=== PATIENT | female | born 1945 | race Caucasian/White ===

== ENCOUNTER 2020-04-07 05:51 | Inpatient (IN) | payer MEDICARE ==
[~2020-04-07] VITALS: Ht 142.2 cm; Wt 40.4 kg
--- NOTE | ~2020-04-07 | OP ---
[facility] [address] [place] [address] OPERATIVE REPORT Name: ANA CHISHOLM Room: [address] IN .R.#: [id number] Admission: 04/07/20 Attend Phys: Di Rizvi MD Discharge: Date of : 41 Report #: [id number] THIS REPORT FOR: cc: Ana Lopes Linda J. DO ~ Zafar Bear DO DICTATED BY: Julio Jones DO DATE OF SERVICE: 04/08/2020 PREOPERATIVE DIAGNOSIS: Right displaced distal femoral shaft fracture. POSTOPERATIVE DIAGNOSIS: Right displaced distal femoral shaft fracture. PROCEDURE: 1. Open reduction and internal fixation of right femur. 2. Physician directed fluoroscopy greater than 1 hour. IMPLANTS: Minerva T2 SCN retrograde nail size 12 x 320 mm with 4 distal interlocking screws and 2 proximal interlocking screws. SURGEON: Zafar Bear DO ASSISTANTS: 1. Julio Jones DO 2. Xavier Hodges DO ANESTHESIA: Spinal. FLUIDS: Crystalloid per Anesthesia. ESTIMATED BLOOD LOSS: 200 mL. COMPLICATIONS: None. SPECIMENS: Right femur reamings. COMPLICATIONS: None. CONDITION: Stable to PACU. DISPOSITION: Recovery in the PACU and transferred back to the floor. ANTIBIOTICS: 1 gram Ancef IV preop. [facility] [address] [place] [address] OPERATIVE REPORT Name: ANA CHISHOLM Room: [address]#: [id number] Admission: 04/07/20 Attend Phys: Di Rizvi MD Discharge: Date of : 41 Report #: [id number] INDICATIONS FOR THE PROCEDURE: The patient is a 75-year-old female who sustained a ground level fall at home. She was brought to [facility] ED where x-rays identified a displaced right femoral shaft fracture. She was also noted to have a breast lesion. On CT, she was found to have multiple lesions throughout her chest, abdomen and pelvis concerning for metastasis. A CT of the right femur was done, which did not appear to have any evidence of a pathological fracture. We recommended open reduction and internal fixation with retrograde nail. The risks, benefits, alternatives and possible complications were discussed at length and she was agreeable to proceed. INTRAOPERATIVE FINDINGS: Upon evaluation in the ER, she was found to have a displaced right distal femoral extraarticular fracture. DESCRIPTION OF PROCEDURE: The patient was met in the preoperative area. The correct site was marked. Consent was obtained both verbally and written. She was transferred to the OR suite. Spinal anesthesia was given by the anesthesia team. She was then transferred to the OR table in the supine position. The right lower extremity was then prepped and draped in the usual sterile fashion. A timeout was to identify the correct patient, procedure and operative site. All in the room were in agreement. The procedure began with an anterior midline incision over the patellar tendon. Sharp dissection was carried down to the level of the peritenon and tendon. We then made a midline incision through the middle of the patellar tendon longitudinally. We then gained access to the knee joint. We placed our starting guidewire. This was noted to be in the appropriate position on AP and lateral fluoroscopic imaging. This was advanced into the femoral canal. We then used our opening reamer. We then pulled traction and performed a reduction maneuver with the assistance of qxqpl-ld-[id number] clamps. We placed a ball tip guidewire into the femoral canal into the proximal fragment and up to the level of the lesser trochanter. We then subsequently reamed to the appropriate size for a final size 12 nail. This was measured for the final nail as well. We then placed an anterior blocking the guidewire to assist in maintenance of the fracture. This was in the distal fragment. We then placed the final nail to the appropriate depth. We used the guide to place four distal locking screws. We then used the distal locking end cap. We then turned our attention proximally for placement of 2 proximal interlocking screws. We used a perfect rincon technique. Incisions were made anteriorly. We then drilled through the proximal femur through the nail. This was confirmed on fluoroscopic imaging. We then measured and placed 2 appropriately sized screws in the static position. Final x-rays were then taken and saved. The wounds were then all thoroughly irrigated. We used several bulbs of irrigation for the intra-articular knee portion. We then closed the incision with 2-0 Vicryl in inverted fashion followed by kenroy on the skin. We reapproximated the patellar tendon with 0 Vicryl in iweqoy-xs-zxnas fashion. The skin for this incision was reapproximated with a dermal 2-0 Vicryl sutures in simple interrupted inverted fashion followed by 3-0 nylon on the skin. [address] [address] OPERATIVE REPORT Name: ANA CHISHOLM Room: M.315-P ADM IN M.R.#: [id number] Admission: 04/07/20 Attend Phys: Di Rizvi MD Discharge: Date of : 41 Report #: [id number] Sterile dressings were then applied. The patient tolerated the procedure well without any complications. All needle and sponge counts were correct x 2 by the OR team at the end of the case. She was transferred back to the PACU in stable condition. By: [id number] [id number] Bear DO /nahun
[2020-04-07 05:53] VITALS: BP 159/69
[2020-04-07] MEDS ORDERED: TRAMADOL 50 MG50 MG PO (06:31)
[2020-04-07 07:27] LABS: ABSOLUTE LYMPHOCYTES 0.9 thou/uL (0.8-5.3); ABSOLUTE MONOCYTES 0.8 thou/uL (0.0-1.2); BASOPHILS 0.2 %; EOSINOPHILS 0.1 %; HEMOGLOBIN 11.8 gm/dL (12.0-15.0); LYMPHOCYTES 8.4 %; MCH 27.9 pg (26.0-34.0); MCHC 32.7 g/dL (28.0-37.0); MCV 85.4 fL (80.0-100.0); MONOCYTES 7.3 %; NUCLEATED RBCS 0 /100WBC; PLATELET COUNT* 359 thou/uL (150-400); RBC 4.22 mil/uL (4.20-5.00); RDW-CV 14.3 % (10.5-14.5); WBC 10.7 thou/uL (4.0-11.0)
[2020-04-07 07:43] LABS: APTT 24.9 Seconds (25.0-31.3); PROTIME 10.9 Seconds (9.20-11.50)
[2020-04-07 07:51] LABS: CALCIUM 9.4 mg/dL (8.5-10.1); CREATININE 0.5 mg/dL (0.6-1.3); POTASSIUM 3.6 mmol/L (3.5-5.1)
[2020-04-07 08:07] LABS: ALBUMIN 2.1 g/dL (3.4-5.0); TOTAL BILIRUBIN 0.4 mg/dL (<0.1-1.0); TOTAL PROTEIN 6.2 g/dL (6.4-8.2)
[2020-04-07 10:02] VITALS: BP 126/82
[2020-04-07 16:54] VITALS: BP 137/78
[2020-04-07 20:00] VITALS: BP 137/78; BP 146/80
[2020-04-08 03:59] VITALS: BP 137/78
[2020-04-08 04:14] LABS: HEMOGLOBIN 11.9 gm/dL (12.0-15.0); MCH 28.2 pg (26.0-34.0); MCHC 32.3 g/dL (28.0-37.0); MCV 87.4 fL (80.0-100.0); MPV 8.2 fl. (7.2-11.1); RBC 4.23 mil/uL (4.20-5.00); RDW-CV 14.7 % (10.5-14.5)
[2020-04-08 04:22] LABS: CALCIUM 9.2 mg/dL (8.5-10.1); CREATININE 0.6 mg/dL (0.6-1.3); MAGNESIUM 2.2 mg/dL (1.8-2.4); POTASSIUM 4.2 mmol/L (3.5-5.1)
[2020-04-08 05:10] VITALS: BP 106/67
[2020-04-08 11:20] VITALS: BP 110/51
--- NOTE | 2020-04-08 12:45 | EKG ---
[place] [address] ELECTROCARDIOGRAM REPORT Name: ANA CHISHOLM Room: [address] IN ..#: [id number] Admission: 04/07/20 Attend Phys: Di Rizvi, Discharge: Date of : 41 Date of Service: 04/07/20 0715 Report #: [id number] THIS REPORT FOR: //name// [facility] ED Test Date: 2020-04-07 Test Time: 07:15:29 Pat Name: ANA CHISHOLM Department: Room: [facility] Gender: F Head Of [employer]ight: TDS : 1945 Requested By: Polly Álvarez Order Number: [id number] MD: Manuel Lund Measurements Intervals [place] Rate: 109 P: 40 NH: 106 QRS: 9 QRSD: 87 T: 51 QT: 325 QTc: 438 Interpretive Statements Sinus tachycardia Probable left atrial enlargement No previous ECG available for comparison Electronically Signed On 04-08-2020 12:45:43 CNC OPERATOR by Manuel Lund [email or web address] <ELECTRONICALLY SIGNED> By: Alexa Lund MD, [facility] 04/08/20 1245 4 4 Alexa Lund MD, [facility] /EPI
[2020-04-08 16:29] VITALS: BP 121/53
[2020-04-09 08:20] VITALS: BP 130/65
--- NOTE | 2020-04-09 13:02 | 2DMMODE ---
[place] [address] 2 D/M-MODE ECHOCARDIOGRAM Name: ANA CHISHOLM Room: [address] IN [facility]#: [id number] Admission: 04/07/20 Attend Phys: Di Rizvi, Discharge: Date of : 41 Date of Service: 04/09/20 1301 Report #: [id number] THIS REPORT FOR: cc: Ana Lopes Linda J. DO Holkins, John M. MD MERGED WITH [facility] ~ APPROVED REPORT Study performed: 04/09/2020 09:28:45 EXAM: Comprehensive 2D, Doppler, and color-flow Echocardiogram Patient Location: In-Patient Room #: [facility] BSA: 1.26 HR: 105 bpm BP: 121/53 mmHg Other Information Study Quality: Good Indications Dyspnea Peripheral Edema 2D Dimensions IVSd: 11.67 (7-11mm) LVOT Diam: 19.16 (18-24mm) LVDd: 37.30 mm PWd: 9.33 (7-11mm) Ascending Ao: 24.98 (22-36mm) LVDs: 22.44 (25-40mm) Aortic Root: 26.57 mm Volumes Left Atrial Volume (Systole) LA ESV Index: 14.40 mL/m2 Aortic Valve AoV Peak Juliano.: 1.08 m/s AO Peak Gr.: 4.63 mmHg LVOT Max P.69 mmHg AO Mean Gr.: 2.55 mmHg LVOT Mean P.23 mmHg LVOT Max V: 1.08 m/s AO V2 VTI: 26.23 cm LVOT Mean V: 0.69 m/s SERGIO (VTI): 2.19 cm2 LVOT V1 VTI: 19.90 [place] [address] 2 D/M-MODE ECHOCARDIOGRAM Name: ANA CHISHOLM Room: [address]#: [id number] Admission: 04/07/20 Attend Phys: Di Rizvi, Discharge: Date of : 41 Date of Service: 04/09/20 1301 Report #: [id number] Mitral Valve E/A Ratio: 0.70 MV Decel. Time: 89.09 ms MV E Max Juliano.: 0.72 m/s MV PHT: 25.84 ms MVA (PHT): 8.51 cm2 TDI E/Lateral E': 9.00 E/Medial E': 10.29 Medial E' Juliano.: 0.07 m/s Lateral E' Juliano.: 0.08 m/s Pulmonary Valve PV Peak Juliano.: 0.76 m/s PV Peak Gr.: 2.33 mmHg Tricuspid Valve RAP Estimate: 5.00 mmHg TR Peak Gr.: 24.75 mmHg RVSP: 29.75 mmHg PA Pressure: 29.75 mmHg Left Ventricle The left ventricle is normal size. There is normal LV segmental wall motion. There is normal left ventricular wall thickness. Left ventricular systolic function is normal. The left ventricular ejection fraction is within the normal range. LVEF is 65%. Grade I - abnormal relaxation pattern. Right Ventricle The right ventricle is normal size. The right ventricular systolic function is normal. Atria The left atrium size is normal. The right atrium size is normal. Aortic Valve The aortic valve is normal in structure. No aortic regurgitation is present. There is no aortic valvular stenosis. Mitral Valve The mitral valve is normal in structure. Mild mitral regurgitation. No evidence of mitral valve stenosis. Tricuspid Valve The tricuspid valve is normal in structure. Mild [place] [address] 2 D/M-MODE ECHOCARDIOGRAM Name: KATHRINEANA Baljeet Room: [address]#: [id number] Admission: 04/07/20 Attend Phys: Di Rizvi, Discharge: Date of : 41 Date of Service: 04/09/20 1301 Report #: [id number] Pulmonic Valve The pulmonary valve is normal in structure. There is no pulmonic valvular regurgitation. Great Vessels The aortic root is normal in size. IVC is normal in size and collapses >50% with inspiration. Pericardium There is no pericardial effusion. Moderate left pleural effusion. <Conclusion> The left ventricle is normal size. There is normal left ventricular wall thickness. Left ventricular systolic function is normal. The left ventricular ejection fraction is within the normal range. LVEF is 65%. Grade I - abnormal relaxation pattern. The right ventricle is normal size. The left atrium size is normal. The aortic valve is normal in structure. The mitral valve is normal in structure. Mild mitral regurgitation. The tricuspid valve is normal in structure. Mild tricuspid regurgitation. IVC is normal in size and collapses >50% with inspiration. There is no pericardial effusion. There is normal LV segmental wall motion. Moderate left pleural effusion. <ELECTRONICALLY SIGNED> By: Meir Travis MD, FACC 04/09/20 1301 1301 1301 Meir Travis MD, FACC /INF
[2020-04-09 17:22] VITALS: BP 121/59
[2020-04-09 20:14] VITALS: BP 129/66
[2020-04-10] VITALS: BP 127/55
[2020-04-10 00:10] VITALS: BP 145/73
[2020-04-10 04:51] LABS: ALBUMIN 1.9 g/dL (3.4-5.0); CALCIUM 8.8 mg/dL (8.5-10.1); CREATININE 0.4 mg/dL (0.6-1.3); MAGNESIUM 2.4 mg/dL (1.8-2.4); POTASSIUM 4.4 mmol/L (3.5-5.1); TOTAL BILIRUBIN 0.2 mg/dL (<0.1-1.0); TOTAL PROTEIN 5.5 g/dL (6.4-8.2)
[2020-04-10 06:00] LABS: HEMATOCRIT 32.6 % (37.0-47.0); HEMOGLOBIN 10.5 gm/dL (12.0-15.0); MCH 27.7 pg (26.0-34.0); MCHC 32.1 g/dL (28.0-37.0); MCV 86.4 fL (80.0-100.0); RBC 3.77 mil/uL (4.20-5.00); RDW-CV 14.8 % (10.5-14.5); WBC 13.5 thou/uL (4.0-11.0)
[2020-04-10 09:45] VITALS: BP 137/78
[2020-04-10 12:07] LABS: M-SPIKE Not Observed g/dL (Not Observed)
[2020-04-10 12:49] VITALS: BP 125/63
[2020-04-10 18:00] VITALS: BP 105/50
[2020-04-10 20:00] VITALS: BP 122/56
[2020-04-11] VITALS: BP 145/73
[2020-04-11 03:47] VITALS: BP 130/49
[2020-04-11 04:59] LABS: HEMATOCRIT 29.7 % (37.0-47.0); HEMOGLOBIN 9.5 gm/dL (12.0-15.0)
[2020-04-11 07:45] VITALS: BP 144/79
[2020-04-11 11:58] VITALS: BP 124/61
[2020-04-11 15:09] LABS: URINE PROTEIN (MG/DL) 37.2 mg/dL (Not Estab.)
[2020-04-11 16:40] VITALS: BP 159/86
[2020-04-11 20:00] VITALS: BP 141/76
[2020-04-12] VITALS: BP 144/60
[2020-04-12 04:00] VITALS: BP 145/70
[2020-04-12 04:15] LABS: HEMATOCRIT 28.3 % (37.0-47.0); HEMOGLOBIN 9.3 gm/dL (12.0-15.0)
[2020-04-12 07:41] VITALS: BP 111/92
[2020-04-12 17:30] VITALS: BP 126/60
[2020-04-12 20:24] VITALS: BP 120/61
[2020-04-13] VITALS: BP 126/62
[2020-04-13 04:24] LABS: HEMATOCRIT 28.8 % (37.0-47.0); HEMOGLOBIN 9.2 gm/dL (12.0-15.0); MCH 27.9 pg (26.0-34.0); MCHC 31.9 g/dL (28.0-37.0); MCV 87.4 fL (80.0-100.0); MPV 7.9 fl. (7.2-11.1); RBC 3.29 mil/uL (4.20-5.00); RDW-CV 14.9 % (10.5-14.5); WBC 14.8 thou/uL (4.0-11.0)
[2020-04-13 04:42] LABS: ALBUMIN 1.9 g/dL (3.4-5.0); CREATININE 0.5 mg/dL (0.6-1.3); MAGNESIUM 2.2 mg/dL (1.8-2.4); POTASSIUM 4.6 mmol/L (3.5-5.1); TOTAL BILIRUBIN 0.3 mg/dL (<0.1-1.0); TOTAL PROTEIN 5.1 g/dL (6.4-8.2)
[2020-04-13 08:40] VITALS: BP 130/67
--- NOTE | 2020-04-13 16:06 | PATH ---
[address] [address] PATHOLOGY RPT PROCEDURE Name: ANA MARIE Room: [address] IN [facility].#: [id number] Admission: 04/07/20 Date of : 41 Discharge: Report #: [id number] Path Case #: [id number] LCA Accession Number: [id number] . 01 Material submitted: . femur - RIGHT FEMORAL REAMING. Modifiers: right . 01 Clinical history: . RIGHT FEMUR FRACTURE ORIF FEMUR DISTAL/MID . 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 SEE COMMENT. (JUSTIN:norbert; 04/12/2020) S 04/12/2020 [facility]2 Local . 02 Comment: Sections show fragmented cancellous bone and some hyaline cartilage as well as abundant hematopoietic elements with multiple nests of adenocarcinoma focally showing duct formation and in general, having a low-grade appearance. A panel of properly controlled immunohistochemical studies performed on A1 show the neoplastic cells to have the following characteristics supporting the diagnosis: . CK7: Negative CK20: Negative Estrogen receptor: Positive Mammaglobin: Negative GATA3: Positive . Per review of Dr. Kvng Huang's consultation dated 04/08/2020, the patient has a large left breast mass with axillary lymphadenopathy, pulmonary lymphangitic spread, liver mets and multiple osseous lesions suspected to be left breast cancer with metastases. Preliminary findings discussed with Dr. Zafar Bear at approximately 15:55 on 04/11/2020. . Reviewed with Dr. Renetta Paniagua who agrees with the diagnosis. (JUSTIN:norbert; 04/12/2020) . 02 Electronically signed: . Remigio Gan MD, Pathologist NPI- [id number] . 01 Gross description: . The specimen is received in formalin, labeled "Ana Marie R femoral reaming" and consists of brown bone reamings measuring 5.5 x 5.5 x 1.0 [place] [address] PATHOLOGY RPT PROCEDURE Name: ANA MARIE Room: [address] IN ..#: [id number] Admission: 04/07/20 Date of : 41 Discharge: Report #: [id number] Path Case #: [id number] in aggregate. A promotional representative portion is submitted in A1 following decalcification. (SDY; 04/10/2020) SYU/SYU 04/10/2020 1624 Local . 02 Pathologist provided ICD-10: S72.91XA . 02 CPT . 087813, 785742, C79418, Y43756 Specimen Comment: A courtesy copy of this report has been sent to [phone] Specimen Comment: Report sent to Performed at: [address], [place], [place] [id number] MD Calixto Cohn MD Phone: [phone] Performed at: 02 [facility] [address], [place], [place] [id number] MD Remigio Gan MD Phone: [phone]
[2020-04-13 20:02] VITALS: BP 121/50
[2020-04-13 23:24] VITALS: BP 131/60
[2020-04-14 07:52] VITALS: BP 126/61
[2020-04-14] MEDS ORDERED: PULMICORT0.5 MG/2 M INH (07:55)
[2020-04-14] MEDS ORDERED: BENZONATATE100 MG PO (07:55)
[2020-04-14] MEDS ORDERED: IPRAT-ALBUT 0.5-3 ML INH (07:55)
[2020-04-14] MEDS ORDERED: ELIQUIS5 MG PO (07:55)
[2020-04-14] MEDS ORDERED: ALPRAZOLAM0.5 M2 PO (07:55)
[2020-04-14] MEDS ORDERED: LIDOPATCH1 EACH TOP (07:55)
[2020-04-14] MEDS ORDERED: OXYCODONE HCL 55 MG PO (07:55)
[2020-04-14] MEDS ORDERED: PREDNISONE 10 M10 MG PO (08:11)
[2020-04-14 17:03] VITALS: BP 131/57
[2020-04-14 20:00] VITALS: BP 114/48
[2020-04-15 01:32] VITALS: BP 127/87
[2020-04-15 08:15] VITALS: BP 134/57
[2020-04-15 20:45] VITALS: BP 128/76
[2020-04-16 02:00] VITALS: BP 131/68
[2020-04-16 05:18] LABS: HEMATOCRIT 26.3 % (37.0-47.0); HEMOGLOBIN 8.4 gm/dL (12.0-15.0); MCH 27.7 pg (26.0-34.0); MCHC 32.1 g/dL (28.0-37.0); MCV 86.4 fL (80.0-100.0); MPV 8.4 fl. (7.2-11.1); RBC 3.04 mil/uL (4.20-5.00); WBC 11.7 thou/uL (4.0-11.0)
[2020-04-16 05:30] LABS: CALCIUM 8.5 mg/dL (8.5-10.1); CREATININE 0.3 mg/dL (0.6-1.3); POTASSIUM 4.2 mmol/L (3.5-5.1)
[2020-04-16 08:15] VITALS: BP 130/65
[2020-04-16 12:00] VITALS: BP 122/62
--- NOTE | 2020-04-16 15:07 | PATH ---
[address] [address] PATHOLOGY RPT PROCEDURE Name: FRANKANA L Room: [address] IN .#: [id number] Admission: 04/07/20 Date of : 41 Discharge: Report #: [id number] Path Case #: [id number] LCA Accession Number: [id number] . 01 Material submitted: . PART A: femur - PROXIMAL FEMORAL CANAL REAMING. Modifiers: proximal PART B: femur - MID SHAFT FEMORAL REAMINGS. Modifiers: mid, body PART C: femur - FEMORAL HEAD AND NECK REAMINGS. Modifiers: head, neck . 01 Clinician provided ICD-10: S72.91XA J96.01 . 01 Clinical history: . UNSP FRATURE OF RIGHT FEMUR, INIT FOR CLOS FX ACUTE RESPIRATORY FAILURE WITH HYPOXIA REPOSITON RIGHT FEMORAL SHAFT WITH INT FIX,OPEN . 02 Diagnosis: A. Proximal femoral canal reaming: - CANCELLOUS BONE, SKELETAL MUSCLE, HYALINE CARTILAGE, AND HEMATOPOIETIC ELEMENTS WITH INVOLVEMENT BY METASTATIC ADENOCARCINOMA COMPATIBLE WITH BREAST PRIMARY. SEE COMMENT. . B. Mid shaft femoral reamings: - CANCELLOUS BONE AND HEMATOPOIETIC ELEMENTS WITH INVOLVEMENT BY METASTATIC ADENOCARCINOMA COMPATIBLE WITH BREAST PRIMARY. SEE COMMENT. . C. Femoral head and neck reamings: - SKELETAL MUSCLE AND CANCELLOUS BONE INCLUDING HEMATOPOIETIC ELEMENTS WITH INVOLVEMENT BY METASTATIC ADENOCARCINOMA COMPATIBLE WITH BREAST PRIMARY. SEE COMMENT. (JUSTIN:pit 04/16/2020) [facility] 04/16/2020 1241 Local . 02 Comment: All three of the specimens show aggregates of malignant cells identical to those seen in the recent right femoral reaming ([id number]). (JUSTIN:pit 04/16/2020) . Discussed with Dr. العلي at approximately 11:50 on 04/16/2020. (JUSTIN:mml; 04/16/2020) . 02 Electronically signed: . Remigio Gan MD, Pathologist NPI- [id number] . 01 Gross description: [place] [address] PATHOLOGY RPT PROCEDURE Name: ANA MARIE Room: [address] IN ..#: [id number] Admission: 04/07/20 Date of : 41 Discharge: Report #: [id number] Path Case #: [id number] A. Received in formalin labeled "Frank, Ana, proximal femoral canal reaming" are multiple, irregular, owen-yellow portions of soft tissue measuring in aggregate 4.2 x 2.4 x 0.4 cm. The specimen is entirely submitted in cassettes A1-A2. . B. Received in formalin labeled "Ana Marie, mid shaft femoral reamings" are multiple, irregular, owen-brown fragments of soft tissue with admixed blood clot measuring in aggregate 6.1 x 4.2 x 1.9 cm. [employer] sections of the specimen are submitted in cassette B1. . C. Received in formalin labeled "Ana Marie, femoral neck and head reamings" are multiple, irregular, owen-brown fragments of soft tissue with admixed blood clot measuring in aggregate 2.9 x 2.4 x 0.4 cm. The specimen is entirely submitted in cassette C1.([facility]; 04/13/2020) GZA/GZA 04/16/2020 1235 Local . 02 Pathologist provided ICD-10: C79.51 . 02 CPT . 995869, 884453, 385934 Specimen Comment: A courtesy copy of this report has been sent to [phone] Specimen Comment: [phone] Specimen Comment: Report sent to DR GONZALEZ / DR العلي Performed at: [address], [place] [id number] MD Calixto Cohn MD Phone: [phone] Performed at: 02 [facility] [address], [place], [place] [id number] MD Remigio Gan MD Phone: [phone]
[2020-04-16 16:00] VITALS: BP 118/54
--- NOTE | 2020-04-16 18:09 | OP ---
[facility] [place] [address] OPERATIVE REPORT Name: ANA CHISHOLM Room: [address] IN M.R.#: [id number] Admission: 04/07/20 Attend Phys: Di Rizvi MD Discharge: Date of : 41 Report #: [id number] THIS REPORT FOR: cc: Ana Lopes Linda J. DO ~ Phu Broussard DO DATE OF SERVICE: 04/10/2020 PREOPERATIVE DIAGNOSIS: Left impending pathologic femur fracture, lytic lesions, multiple. POSTOPERATIVE DIAGNOSIS: Left impending pathologic femur fracture, lytic lesions, multiple. PROCEDURE: Prophylactic cephalomedullary nailing, left femur. SURGEON: Phu Broussard DO RIVET MACHINE OPERATOR: Julio Jones DO ANESTHESIA: General. ANTIBIOTICS: Ancef. INTRAVENOUS FLUIDS: 800 mL lactated Ringer's. ESTIMATED BLOOD LOSS: 150 mL. COMPLICATIONS: None. SPECIMENS: Multiple specimens from reamings sent from different aspects of the canal taken and confirmed on timeout. DRAINS: None. CONDITION OF PATIENT: Stable to PACU. IMPLANTS: [place] gamma nail, 11 x 340 mm x 125 degree with appropriately sized proximal lag and distal interlock screws x 2. INDICATIONS FOR PROCEDURE: Severe pain with ambulation and imaging evidence of multiple lytic areas of impending pathologic fracture. Risks and complications were discussed with the patient and daughter and they were acknowledged, accepted and gave consent to proceed. [address] [address] OPERATIVE REPORT Name: ANA CHISHOLM Baljeet Room: [address] IN M.R.#: [id number] Admission: 04/07/20 Attend Phys: Di Rizvi MD Discharge: Date of : 41 Report #: [id number] DESCRIPTION OF PROCEDURE: I marked the left lower extremity in the presence of operative team members. Everyone agreed correct. She was taken back to the operative suite, placed on the table supine, well-padded and secured. General anesthetic administered well. The left lower extremity was sterilely prepped and draped in standard fashion. Timeout was performed indicating correct patient, procedure, site, antibiotics and that implants were present and sterile. All team members agreed. Marked out incisions with the help of C-arm. We began proximal to the greater trochanter, scalpel through skin, dissection down to the trochanter. A guidewire placed in appropriate position and advanced with the help of C-arm. Once confirming appropriate position. We then reamed over placed ball-tipped guidewire. All reamings were sent and labeled appropriately and confirmed measured with the ball-tipped guidewire as 340. We subtracted some off of the actual measurement so as to not be long. The final 11 x 340 mm nail was thrown on to the back table. We reamed with a 13.5 reamer sent those reamings for specimen as well and confirmed. Final nail inserted over the guidewire, it went very easily with no complication. Incision made and guide placed down to bone for lag screw placement. A guidewire placed in the appropriate position of the femoral neck and head, measured, reamed and sent those reamings for specimen as well and placed a lag screw, set screw engaged fully and confirmed by no longer being able to turn the lag screwdriver and removed the external aiming guide and any other guide. Final images proximally were taken and saved showing appropriate position of hardware with no complication. Distally, we performed perfect [place] technique, a percutaneous incision spread to bone, drilled, measured and placed appropriately sized screws. Final images showed appropriate placement of hardware with no complication. Irrigated all incisions with normal saline. Deep layers were closed with 0 Vicryl, subcutaneous with 2-0 Monocryl and skin with kenroy. Debriefing performed confirming procedure, blood loss and that all counts were correct and final. All team members agreed. Sterile silver impregnated dressing applied. She was extubated and taken to PACU in stable. POSTOPERATIVE COURSE AND EVALUATION: I spoke with her daughter, addressed questions, she had to satisfaction. She was thankful for my time and efforts. The patient was resting in PACU with stable vital signs, pain controlled, neurovascularly intact. Compartments soft and compressible. No sign of DVT. No signs of compartment syndrome. PACU films showed stable fixation. She will be weightbear as tolerated. PT, OT, DVT prophylaxis pharmacological and mechanical. Call anytime with questions or concerns. COVID protocol followed at all times. <ELECTRONICALLY SIGNED> By: Phu Broussard DO 04/16/20 1809 1404 1600Jadarrel Broussard DO /nt
[2020-04-16 20:18] VITALS: BP 112/49
[2020-04-17 02:00] VITALS: BP 120/54
[2020-04-17 07:30] VITALS: BP 116/56
[2020-04-17 16:01] VITALS: BP 113/41
[2020-04-17 19:48] VITALS: BP 121/52
[2020-04-18 02:16] VITALS: BP 109/50
[2020-04-18 08:00] VITALS: BP 105/71
[2020-04-18 17:12] VITALS: BP 105/71
[2020-04-18 17:21] VITALS: BP 105/71
[2020-04-19] VITALS: BP 100/38
[2020-04-19 08:00] VITALS: BP 119/57
[2020-04-19 11:51] VITALS: BP 105/71
[2020-04-19 12:15] VITALS: BP 112/44
[2020-04-19 13:13] VITALS: BP 105/71
[2020-04-19 15:29] VITALS: BP 105/71
--- NOTE | 2020-04-20 11:07 | PATH ---
[address] [address] PATHOLOGY RPT PROCEDURE Name: MONA MARIE Room: [address]#: [id number] Admission: 04/07/20 Date of : 41 Discharge: 04/19/20 Report #: [id number] Path Case #: [id number] [facility] Accession Number: [id number] . 01 Material submitted: . breast - LEFT BREAST MASS. Modifiers: left . 01 Clinical history: . 4.88 x 3.55 x 3.29 cm . . 02 Diagnosis: Left breast mass, image guided core biopsies: - INFILTRATING DUCTAL ADENOCARCINOMA, INTERMEDIATE GRADE, SPANNING 6 MM. SEE COMMENT. . Surgical Pathology Cancer Case Summary . Protocol posting date: April 2019 . INVASIVE CARCINOMA OF THE BREAST: Biopsy . Procedure ___ Other: Image guided core biopsy. . Specimen Laterality ___ Left . Tumor Site ___ Not specified . Tumor Size ___ Greatest dimension of largest invasive focus >1 mm: 6 mm . Histologic Type (Note A) ___ Invasive carcinoma of no special type (ductal) . Histologic Grade (Royal Histologic Score) Glandular (Acinar)/Tubular Differentiation ___ Score 3 (<10% of tumor area forming glandular/tubular structures) . Nuclear Pleomorphism ___ Score 2 (cells larger than normal with open vesicular nuclei, visible nucleoli, and moderate variability in both size and shape) . Mitotic Rate ___ Score 2 . Overall Grade [facility] [address] [place] [address] PATHOLOGY RPT PROCEDURE Name: MONA MARIE Room: [address]#: [id number] Admission: 04/07/20 Date of : 41 Discharge: 04/19/20 Report #: [id number] Path Case #: [id number] ___ Grade 2 (scores of 6 or 7) . Ductal Carcinoma In Situ (DCIS) ___ Not identified . Lymphovascular Invasion ___ Not identified . Microcalcifications ___ Present in non-neoplastic tissue . Ancillary Studies . Biomarker Studies ___ Pending block A2 . (JUSTIN:pit 04/16/2020) [facility] 04/16/2020 103 Local . 02 Comment: Approximately 25% of the submitted tissues is involved by invasive neoplasm noted to infiltrate as small nests and cords. Properly controlled immunohistochemical studies performed on A2 show the following results supporting the classification: E-cadherin: Positive Keratin DEMI: Positive . The histologic features are similar to those seen in the recent right femoral reaming which showed metastatic adenocarcinoma compatible with breast (estrogen receptor positive) primary ([phone]). Breast tumor profile studies are pending and will be the subject of an addendum report. Rosio (acting [facility] Breast Navigator) notified at approximately 1225 on 04/16/2020. Reviewed with Dr. Calixto Cohn who agrees with the diagnosis. . (JUSTIN:pit 04/16/2020) . 02 Addendum: . Special studies report received from [facility], [address] [place] [address], [address], [place], [address], on case [id number], labeled with their number [id number], dated 04/19/2020. . Breast/Prognostic Marker Analysis . Specimen Site: Breast - Breast Cancer Specimen ID #: [id number] . ER (Estrogen Receptor) [place] [address] PATHOLOGY RPT PROCEDURE Name: MONA MARIE Room: [address] IN M.R.#: [id number] Admission: 04/07/20 Date of : 41 Discharge: 04/19/20 Report #: [id number] Path Case #: [id number] Present/Positive Percent: 95.00% Analysis: Manual Comments: Staining Intensity: Moderate. . WA (Progesterone Receptor) Absent/Negative Percent: 0.00 Analysis: Manual Comments: WA Comment: Internal controls are present and exhibit minimal immunoreactivity. External controls are appropriately positive. If needed, testing another specimen may be warranted for confirmation of WA status. . HER2 Not Over-Expressed Score: 0 Analysis: Manual . Ki-67 Low Proliferation Percent: 10.00% Analysis: Manual . Time to Fixation (Cold Ischemic Time): 13 Minutes Duration of Fixation: 11 Hours 39 Minutes Type of Fixative: 10% Neutral Buffered Formalin . Comments: ER/PgR testing at [facility]. is performed in compliance with the ASCO/CAP Clinical Practice Guidelines. If the result for ER is less than 1% it is reported as Negative; if the ER result is 1-10% it is reported as Low Positive; if the ER result is greater than 10% it is reported as Positive. If the result for PgR is less than 1% it is reported as Negative; if the PgR result is equal to or greater than 1%, it is reported as Positive. . REF: Elinor CH, Gerardo DAVIDSON, et al: Estrogen and Progesterone Receptor Testing in Breast Cancer. ASCO/CAP Guideline Update. DOI 10.5858/arpa.6337-3335-DJ. . Whole slide image capture is performed using [employer] (DotBlu) platform. Image analysis, if ordered, is performed using [employer] software. . at [facility]. Esdras Camacho [place] [address] PATHOLOGY RPT PROCEDURE Name: MONA MARIE Room: [address] IN M.R.#: [id number] Admission: 04/07/20 Date of : 41 Discharge: 04/19/20 Report #: [id number] Path Case #: [id number] . Methodology The HER2 Receptor protein expression is analyzed using the [place] HER2 rabbit monoclonal antibody (clone 4B5). This assay is used for diagnostic determination of the HER2 protein over-expression in paraffin embedded, formalin fixed breast cancer tissue on the [employer] Benchmark. The specimen is processed using a secondary antibody-HRP conjugate detection system. The membrane staining of the tumor is determined either by manual score or image analysis. This antibody is intended for in vitro diagnostic use. The score is reported as 0, 1+, 2+, or 3+. This test is used for clinical purposes. . A rabbit monoclonal antibody (clone SP1) that recognized the Estrogen Receptor is used to perform immunohistochemistry on routinely fixed (formalin) paraffin embedded tissue on the [employer] Benchmark. The specimen is processed using a secondary antibody-HRP conjugate detection system. The percentage of stained tumor nuclei is determined either manually or by image analysis. This test is intended for in vitro diagnostic use. This test is used for clinical purposes. . A rabbit monoclonal antibody (clone 1E2) that recognized the Progesterone Receptor is used to perform immunohistochemistry on routinely fixed (formalin) paraffin embedded tissue on the [employer] Benchmark. The specimen is processed using a secondary antibody-HRP conjugate detection system. The percentage of stained tumor nuclei is determined either manually or by image analysis. This test is intended for in vitro diagnostic use. This test is used for clinical purposes. . A rabbit monoclonal antibody (clone 30-9) that recognized Ki67 is used to perform immunohistochemistry on routinely fixed (formalin) paraffin embedded tissue on the [employer] Benchmark. The specimen is processed using a secondary antibody-HRP conjugate detection system. The percentage of stained tumor nuclei is determined either manually or by image analysis. This test is intended for in vitro diagnostic use. This test is used for clinical purposes. . Intended Use: This antibody is intended for in vitro diagnostic (IVD) use. HER2 (4B5) is a rabbit monoclonal antibody intended for the semi-quantitative detection of HER2 antigen in sections of formalin-fixed, paraffin embedded normal and neoplastic tissue. . This antibody is intended for in vitro diagnostic (IVD) use. Estrogen Receptor (ER) (SP1) is a rabbit monoclonal antibody (IgG) that is intended for the qualitative detection of estrogen receptor (ER) antigen in sections of formalin-fixed, paraffin-embedded tissue. ER is a rabbit monoclonal antibody that recognizes human estrogen receptor alpha. . This antibody is intended for in vitro diagnostic ([place]) [place] [address] PATHOLOGY RPT PROCEDURE Name: MONA MARIE Room: [address] IN ..#: [id number] Admission: 04/07/20 Date of : 41 Discharge: 04/19/20 Report #: [id number] Path Case #: [id number] Receptor (WA) (1E2) is a rabbit monoclonal antibody (IgG) that is intended for the qualitative detection of progesterone receptor (WA) antigen in sections of formalin fixed, paraffin embedded tissue. WA is a rabbit monoclonal antibody that recognizes the A and B forms of the human progesterone receptor. . This antibody is intended for in vitro diagnostic (IVD) use. Ki-67 (30-9) is a rabbit monoclonal antibody (IgG) directed against C-terminal portion of Ki-67 antigen. Staining for Ki-67 can be used to aid in assessing the proliferative activity of normal and neoplastic tissue. Ki-67 is a nuclear protein expressed in proliferating cells. During the cell cycle, the Ki-67 antigen is present in the G1, S, G2 and M phase but is absent in the G0 (quiescent phase). . . Disclaimer: This Test was performed by [facility]. at [address], [address]. . [facility] is a business unit of [facility]. a wholly-owned subsidiary of [employer]. . This assay has not been validated on decalcified tissues. Results should be interpreted with caution if this specimen was decalcified given the likelihood of false negativity on decalcified specimens. . Any image(s) that accompany this report is/are a cash posting representative image(s) only and should not be used to render a diagnosis. . This interpretation is contingent on the specimen and the clinical information received. . For any special tests/stains performed, known positive cells or tissues are tested with each marker and examined to ensure positivity. Positive and negative internal controls, if present, react appropriately. . This analysis is an adjunct to the evaluation of the referring physician and does not represent a final diagnosis. . The immunohistochemistry tests performed at [facility]. were validated on tissue fixed in 10% neutral buffered formalin. The performance characteristics of the tests performed on tissue processed in other fixatives is not known. . HER2 testing at [facility]., is performed in compliance with the 2018 updated ASCO/CAP Clinical Practice Guideline Focused Update. If the result is EQUIVOCAL (2+), it must be confirmed by an alternative assay such as FISH or [place] [address] PATHOLOGY RPT PROCEDURE Name: MONA MARIE Room: [address] IN M.R.#: [id number] Admission: 04/07/20 Date of : 41 Discharge: 04/19/20 Report #: [id number] Path Case #: [id number] REF: Lorraine ULRICH, LETY Carrillo et al: Human Epidermal Growth Factor Receptor 2 Testing in Breast Cancer: ASCO/CAP Clinical Practice Guideline Focused Update. J Clin Oncol 36:7407-9899, 2018. . HER2 and ER/WA ASCO/CAP guidelines require fixation in neutral buffered formalin for a minimum of 6 and a maximum of 72 hours. Fixation times less than 6 hours may not adequately preserve cell proteins. Fixation times longer than 72 hours may cause excess cross-linking of proteins reducing the antigen available for staining. Either scenario can cause reduced staining; hence false negative results are possible and should be considered for these situations if the HER2 IHC score is less than 3+ or ER or WA is negative (no staining or <1% positive). It is recommended that specimens fixed longer than 72 hours with HER2 IHC scores less than 3+ be confirmed by HER2 FISH or Dual GEOVANY. The time from biopsy/excision to fixation in formalin (cold ischemic time) must be less than 1 hour. Time to fixation (cold ischemic time) greater than 1 hour should be interpreted with caution. HER2 testing, mainly HER2 by FISH, is particularly vulnerable since excessive cold ischemic time results in preferential loss of HER2 probe signals that may lead to false negative results. . SCORE STAINING PATTERN IN TUMOR CELLS INTERPRETATION RESULTS 0 No staining observed or incomplete, faint membrane staining in less than or equal to 10% of tumor cells. Negative 1+ Incomplete, faint membrane staining in greater than 10% of tumor cells. Negative 2+ Weak to moderate complete membrane staining observed in greater than 10% of tumor cells. Equivocal* *Must be confirmed by alternative assay (IHC/FISH/Dual GEOVANY) 3+ Intense, complete membrane staining in greater than 10% of tumor cells. Positive . A complete copy of the report is on file. . Professional and Technical services performed by [facility]. at [address], [place] [address]. . (JUSTIN:amj 04/19/2020) MBR/04/19/2020 Addendum Electronically Signed by Remigio Gan MD, Pathologist . 02 Electronically signed: . Remigio Gan MD, [place] [address] PATHOLOGY RPT PROCEDURE Name: MONA MARIE Room: [address]#: [id number] Admission: 04/07/20 Date of : 41 Discharge: 04/19/20 Report #: [id number] Path Case #: [id number] NPI- [id number] . 01 Gross description: . The specimen is received in formalin, labeled "Mona Marie, left breast mass". Received are multiple needle cores of fibrofatty tissue measuring 1.8 x 1.0 x 0.2 cm in aggregate dimensions. The specimen is submitted entirely in cassettes A1 through A3. The cold ischemic time is 13 minutes. The total formalin fixation time is 11 hours and 39 minutes. (CAA; 04/12/2020) QAC/QAC 04/12/2020 1648 Local . 02 Pathologist provided ICD-10: C50.912 . 02 CPT . 118420, K66129, R69728 Specimen Comment: A courtesy copy of this report has been sent to [phone] Specimen Comment: Report sent to Performed at: [address], [place], [place] [id number] MD Calixto Cohn MD Phone: [phone] Performed at: 02 [facility] [address], [place], [place] [id number] MD Remigio Gan MD Phone: [phone]
== END 2020-04-19 15:15 | disposition home health service (06) | DRG 480 ==
LOC: M.ERS 05:51 → M.TBA-ER 07:01 → M.3W 07:01 → M.2W 04-18 18:13
PROVIDERS: Internal Medicine; Orthopaedic Surgery; Personal Emergency Response Attendant; ADMIT Internal Medicine; ATTEND Internal Medicine
PROC: 0QS804Z Reposition Right Femoral Shaft with Internal Fixation Device, Open Approach (ICD-10-PCS; principal; 2020-04-08)
PROC: 0QH906Z Insertion of Intramedullary Internal Fixation Device into Left Femoral Shaft, Open Approach (ICD-10-PCS; 2020-04-10)
PROC: 0HBU3ZX Excision of Left Breast, Percutaneous Approach, Diagnostic (ICD-10-PCS; 2020-04-11)
DX: M84.451A Pathological fracture, right femur, initial encounter for fracture (principal); J96.01 Acute respiratory failure with hypoxia; E43 Unspecified severe protein-calorie malnutrition; J44.1 Chronic obstructive pulmonary disease with (acute) exacerbation; C79.51 Secondary malignant neoplasm of bone; C78.00 Secondary malignant neoplasm of unspecified lung; C78.7 Secondary malignant neoplasm of liver and intrahepatic bile duct; M84.452A Pathological fracture, left femur, initial encounter for fracture; M84.48XA Pathological fracture, other site, initial encounter for fracture; Z20.822 Contact with and (suspected) exposure to COVID-19; I10 Essential (primary) hypertension; C50.912 Malignant neoplasm of unspecified site of left female breast; M19.90 Unspecified osteoarthritis, unspecified site; F17.210 Nicotine dependence, cigarettes, uncomplicated; N63.0 Unspecified lump in unspecified breast; R63.4 Abnormal weight loss; R59.1 Generalized enlarged lymph nodes; R33.9 Retention of urine, unspecified; Z68.20 Body mass index [BMI] 20.0-20.9, adult; Z79.899 Other long term (current) drug therapy